=== PATIENT | female | born 1965 | race American Indian/Alaskan Native ===

== ENCOUNTER 2018-12-28 21:41 | Emergency (ER) | payer BC ==
--- NOTE | 2018-12-28 22:04 | Event Note ---
ED Screening Note Date of service: 12/28/18 Time: 22:01 ED Screening Note: This is a 53 y.o. F. that presents to the ER with laceration to left 3rd distal finger s/p slamming finger in car door. PMH of DM, migraine, HTN, seasonal allergies, and vertigo This initial assessment/diagnostic orders/clinical plan/treatment(s) is/are subject to change based on patients health status, clinical progression and re- assessment by fellow clinical providers in the ED. Further treatment and workup at subsequent clinical providers discretion. Patient/guardian urged not to elope from the ED as their condition may be serious if not clinically assessed and managed. Initial orders include: XR left fingers
--- NOTE | 2018-12-28 23:19 | XRay Report ---
Left middle finger, 3 views INDICATION: Pain following injury tonight FINDINGS: There is laceration involving the distal aspect of the middle finger and there is a minimal nondistracted fracture of the distal tuft. Finger otherwise is intact. Signer Name: Vick Álvarez MD Signed: 12/28/2018 11:15 PM Workstation Name: [id number]
--- NOTE | 2018-12-28 23:43 | Emergency Department Report ---
ED Upper Extremity Inj HPI - General Chief Complaint: Extremity Injury, Upper Stated Complaint: LEFT MIDDLE FINGER INJURY Time Seen by Provider: 12/28/18 22:01 Source: patient Mode of arrival: Ambulatory Limitations: No Limitations - History of Present Illness Initial Comments: This is a 53 y.o. F. that presents to the ER with laceration to left 3rd distal finger s/p slamming finger in car door. PMH of DM, migraine, HTN, seasonal allergies, and vertigo Complaint: Injury to:: left, finger -: This evening Other Extremity Injury: Fingers: Right (middle finger) Other Injuries: none Handedness: right Severity scale (0 -10): 10 Worsens With: movement of extremity Context: direct blow Associated Symptoms: denies other symptoms - Related Data Previous Rx's Medication Instructions Recorded Last Taken Type Acetaminophen/Codeine [Tylenol 1 tab PO Q6H PRN #12 tab 12/29/18 Unknown Rx /Codeine # 3 tab] Ibuprofen [Motrin 800 MG tab] 800 mg PO Q8HR PRN #30 tablet 12/29/18 Unknown Rx cephALEXin [Keflex] 500 mg PO Q12HR 10 Days #20 cap 12/29/18 Unknown Rx Allergies Allergy/AdvReac Type Severity Reaction Status Date / Time IVP dye Allergy Hives Uncoded 12/28/18 21:46 ED Review of Systems ROS: Stated complaint: LEFT MIDDLE FINGER INJURY Other details as noted in HPI Comment: All other systems reviewed and negative ED Past Medical Hx - Past Medical History Previous Medical History?: Yes Hx Hypertension: Yes Hx Diabetes: Yes Hx Headaches / Migraines: Yes Additional medical history: Vertigo - Surgical History Additional Surgical History: Sinus, Hysterectomy - Social History Smoking Status: Never Smoker Substance Use Type: None - Medications Home Medications: Home Medications Medication Instructions Recorded Confirmed Last Taken Type Acetaminophen/Codeine [Tylenol 1 tab PO Q6H PRN #12 tab 12/29/18 Unknown Rx /Codeine # 3 tab] Ibuprofen [Motrin 800 MG tab] 800 mg PO Q8HR PRN #30 tablet 12/29/18 Unknown Rx cephALEXin [Keflex] 500 mg PO Q12HR 10 Days #20 cap 12/29/18 Unknown Rx ED Physical Exam - General Limitations: No Limitations General appearance: alert, in no apparent distress - Head Head exam: Present: atraumatic, normocephalic - Eye Eye exam: Present: normal appearance - ENT ENT exam: Present: mucous membranes moist - Expanded Upper Extremity Exam Right Hand Wrist exam: Present: full ROM, tenderness, erythema, nail avulsion. Absent: swelling ED Course Vital Signs 12/28/18 21:48 Temperature 97.6 F Pulse Rate 94 H Respiratory 18 Rate Blood Pressure 139/89 O2 Sat by Pulse 98 Oximetry ED Medical Decision Making - Radiology Data Radiology results: report reviewed Patient: NOVA FRANCIS MR#: [id number] 270 : 1965 Acct:[id number] Age/Sex: 53 / F ADM Date: 12/28/18 Loc: ED Attending Dr: Ordering Physician: JER PARKER Date of Service: 12/28/18 Procedure(s): XR finger(s) 2+V LT Accession Number(s): [id number] cc: JER PARKER Fluoro Time In Minutes: Left middle finger, 3 views INDICATION: Pain following injury tonight FINDINGS: There is laceration involving the distal aspect of the middle finger and there is a minimal nondistracted fracture of the distal tuft. Finger otherwise is intact. Signer Name: Vcik Álvarez MD Signed: 12/28/2018 11:15 PM Workstation Name: [id number] Transcribed By: SABINA Dictated By: Vick Álvarez MD Electronically Authenticated By: Vick Álvarez MD Signed Date/Time: 12/28/182314 DD/ 13 TD/TT: - Medical Decision Making This is a 53 y.o. F. that presents to the ER with laceration to left 3rd distal finger s/p slamming finger in car door. PMH of DM, migraine, HTN, seasonal allergies, and vertigo Attempt to suture nail back to nailbed nail had to be removed. Patient had to surgical hemstat control bleeding. Clean bandage was placed. X-ray shows there is a nondisplaced fracture of the turf of the middle finger. Patient be placed on Keflex 500 mg twice a day for 10 days. Patient was given Tylenol 3 for pain management and ibuprofen. Patient is to follow-up with her primary care provider for symptoms persists or gets worse. Critical care attestation.: If time is entered above; I have spent that time in minutes in the direct care of this critically ill patient, excluding procedure time. ED Disposition Clinical Impression: Nailbed laceration, finger, Open fracture of tuft of distal phalanx of finger Disposition: TO HOME OR SELFCARE Is pt being admited?: No Does the pt Need Aspirin: No Condition: Stable Instructions: Finger Fracture (ED), Toenail/Fingernail Removal (ED) Additional Instructions: Keep wound clean and dry. Change bandage at least twice a day. Complete antibiotics as prescribed. Pain medication as needed. Do not operate heavy machinery taken Tylenol 3. You can apply triple antibiotics to the wound with dressing change. Follow up with her primary care provider if symptoms persist or gets worse. Prescriptions: cephALEXin [Keflex] 500 mg PO Q12HR 10 Days #20 cap Ibuprofen [Motrin 800 MG tab] 800 mg PO Q8HR PRN #30 tablet PRN Reason: Pain , Severe (7-10) Acetaminophen/Codeine [Tylenol /Codeine # 3 tab] 1 tab PO Q6H PRN #12 tab PRN Reason: Pain , Severe (7-10) Referrals: PHILOMENA WAYNE JR, MD [Staff Physician] - 3-5 Days JOSLYN JEFFRIES MD [Referring] - 3-5 Days
[2018-12-28] MEDS ORDERED: XYLOCAINE 1% 20 mL INFILTRATI ONE (23:50)
[2018-12-28] MEDS ORDERED: NORCO 7.5/325 PO ONE (23:50)
[2018-12-29 02:14] VITALS: BP 138/89
== END 2018-12-29 02:13 | disposition home or self-care (01) ==
LOC: ED 21:41
DX: S62.638B Displaced fracture of distal phalanx of other finger, initial encounter for open fracture (principal); S61.313A Laceration without foreign body of left middle finger with damage to nail, initial encounter; I10 Essential (primary) hypertension; E11.9 Type 2 diabetes mellitus without complications; G43.909 Migraine, unspecified, not intractable, without status migrainosus; Z90.710 Acquired absence of both cervix and uterus; Z79.899 Other long term (current) drug therapy; Z91.041 Radiographic dye allergy status; W23.1XXA Caught, crushed, jammed, or pinched between stationary objects, initial encounter; Y93.89 Activity, other specified; Y92.89 Other specified places as the place of occurrence of the external cause; Y99.8 Other external cause status